=== PATIENT | female | born 1930 | race Caucasian/White ===

== ENCOUNTER 2016-05-16 11:02 | Outpatient (CLI) | payer MEDICARE, BC ==
--- NOTE | 2016-05-16 18:10 | CT ---
CT OF THE CHEST WITHOUT CONTRAST 05/16/[address] of the chest was done without IV contrast for evaluation of an abnormal chest x-ray done r ecently. A nondescript opacity was seen in the left upper lobe that was not present on older film. A xial slices were acquired, then coronal reconstructions were done. There is a broad ground glass-like infiltrative area in the left upper lobe corresponding to the abn ormality on the chest x-ray. It measures 3.7 x 2.5 cm roughly. There are a few areas in it that do a ppear to have air bronchograms. Statistically, this is more apt to be infectious in nature, however, neoplasia is definitely not excluded at this point. I would recommend a instrument repairer consult for c onsideration of further workup. Elsewhere there are no significant pulmonary nodules. There are a few focal areas of pleural thicken ing in the posterior hemithorax bilaterally, none of which are specific in appearance. There are no pleural effusions. The mediastinum showed no mass or adenopathy. Minimal calcification is seen in the left coronary sys tem. Dense calcification is seen at the origin of the right coronary artery. There are no pericardia l effusions. The visible upper abdomen was unremarkable, including the adrenal glands. IMPRESSION: 1. 4.7 x 2.5 cm ground glass infiltrative area in the left upper lobe. Infectious etiology favo red but neoplastic etiology is definitely still a possibility. Pulmonary referral is needed. 2. Coronary arteriosclerosis, particularly involving the origin of the right coronary artery. Code T POS: HOME
== END 2016-05-16 11:03 | disposition home or self-care (01) ==
LOC: BURCT 11:02
PROVIDERS: ATTEND Physician Assistant
DX: R91.1 Solitary pulmonary nodule (principal); I25.10 Atherosclerotic heart disease of native coronary artery without angina pectoris
CPT/HCPCS: 71250

== ENCOUNTER 2016-11-21 09:17 | Inpatient (IN) | payer MEDICARE, BC ==
[2016-11-21 16:34] VITALS: BMI 18.0
[2016-11-21] MEDS ORDERED: traMADol HCl 50 MG TAB PO PRN (17:56)
[2016-11-21] MEDS ORDERED: Dextrose 50% Abboject 50 ML SYRINGE SLOW IVP PRN (18:00)
[2016-11-21] MEDS ORDERED: Dextrose 5% in Water 1,000 ML IV PRN (18:00)
[2016-11-21 18:45] LABS: #Basophils 0.1 thou/uL (0.0-0.2); #Eosinphils 0.1 thou/uL (0.0-0.7); #Lymphocytes 0.6 thou/uL (1.20-3.40); #Monocytes 0.6 thou/uL (0.11-0.59); %Lymphocytes 7.9 % (21.0-51.0); %Monocytes 7.5 % (0.0-10.0); %Neutrophils 81.6 % (42.0-75.0); Hemoglobin 11.2 g/dL (12.0-16.0); Mean Corpuscular HGB CONC 32.6 g/dL (32.0-36.0); Mean Corpuscular Hemoglobin 29.3 pg (27.0-31.0); Mean Platelet Volume 6.4 fL (7.4-10.4); Platelet Count 207 thou/uL (130-400); RBC Distribution Width 13.7 % (11.5-14.5); Red Blood Cell (RBC) Count 3.81 mill/uL (4.20-5.40); White Blood Cell (WBC) Count 7.3 thou/uL (4.8-10.8)
[2016-11-21] MEDS: Atorvastatin Calcium 10 MG TAB PO SCH (20:47)
[2016-11-21] MEDS: Metoprolol Tartrate 25 MG TAB PO SCH (20:47)
[2016-11-21] MEDS: Famotidine 20 MG TAB PO SCH (20:47)
[2016-11-21] MEDS: Apixaban 5 MG TAB PO SCH (20:48)
--- NOTE | 2016-11-22 08:14 | HP ---
CHIEF COMPLAINT: Rehab. HISTORY OF PRESENT ILLNESS: Ms. Strong is an 86-year-old female who was admitted to [facility] on 11/06/2016 to undergo left thoracotomy with left upper lobectomy and mediastinal lymph node dissection by Dr. Aaron Alamo due to a left upper lobe PET-positive mass. This was performed on 11/06/2016 without any post-surgical complications. She had chest tubes that were placed intraoperatively x2 and she was successfully extubated post-procedure. On 11/14/2016, apparently the patient developed what appeared to be slurred speech and some jerking movements of her extremities and Neurology was consulted for orthostatic hypotension which was thought to be due to multiple antihypertensives that were given per consult with neurologist, Dr. Negrito Crowe. In addition, the patient developed some paroxysmal atrial arrhythmias and was evaluated by Cardiology, Dr. Garcia. She was placed on beta -valerie and given IV Cardizem. However, she later had persistent atrial fibrillation with atrial flutter and underwent transesophageal echo on 2016 and subsequent synchronized cardioversion. The patient converted to sinus rhythm with PACs. The patient was on aspirin therapy and was recommended changed to Eliquis at discharge. She also had some atelectasis and eventually required bronchoscopy for her atelectasis to clear her secretions. 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 She was transferred here to the skilled unit for skilled PT and OT with eventual plan to return home with outpatient physical and occupational therapy. PAST MEDICAL HISTORY: 1. Type 2 diabetes. 2. Hypertension. 3. Irritable bowel syndrome. 4. Gastroesophageal reflux disease. 5. Dyslipidemia. 6. Postoperative atrial fibrillation/flutter. 7. Adenocarcinoma of left lung. PAST SURGICAL HISTORY: 1. Tonsillectomy. 2. Cholecystectomy. 3. Appendectomy. 4. Hysterectomy. 5. Carotid arterial stents. 6. Breast biopsy. 7. Cataract surgery bilaterally. 8. Percutaneous coronary intervention in 2003. 9. Bilateral carotid endarterectomy. 10. Hemicolectomy on the right for colon cancer in 2011. 11. Left thoracotomy with left upper lobectomy and mediastinal lymph node dissection 11/06/2016. FAMILY HISTORY: Noncontributory. SOCIAL HISTORY: Negative for tobacco, alcohol, or illicit drug use. She has no history of smoking. No exposure to chemical, dust, asbestoses or tuberculosis. ALLERGIES: AMOXICILLIN, CIPRO, IODINE, SHELLFISH, TETANUS, and ERYTHROMYCIN. CURRENT MEDICATIONS: 1. Digoxin 0.125 mg p.o. q.a.m. 2. Multaq 400 mg p.o. b.i.d. with meals. 3. Lopressor 25 mg p.o. b.i.d. 4. Klor-Con 20 mEq orally every morning with breakfast. 5. Tramadol 100 mg every 6 hours as needed for moderate pain, 4-6. 6. Aspirin 81 mg daily. 7. Linzess 145 mcg orally every morning. 8. Hydralazine 50 mg 3 times a day. 9. Pravastatin 40 mg p.o. at bedtime. 10. Docusate sodium 1 p.o. daily as needed. 11. Calcium carbonate plus vitamin D 250 mg 1 p.o. daily. 12. Januvia 12.5 mg 1 p.o. daily. REVIEW OF SYSTEMS: GENERAL: The patient denies fever. Consistently cold, but denies chills. The patient with some fatigue with distant exertion. HEENT: She denies any vision changes. Denies nasal congestion, postnasal drip , sore throat, ear pain. CARDIOVASCULAR: The patient denies palpitations, chest pain except as with post -surgery, orthopnea, PND. RESPIRATORY: The patient denies shortness of breath except with distant exertion. Positive cough productive of clear sputum. Denies hemoptysis. No wheezing, but she has been getting DuoNeb also regional. GASTROINTESTINAL: Denies constipation, diarrhea, heartburn, nausea, vomiting. However, she does have history of IBS and esophageal reflux disease. GENITOURINARY: The patient denies dysuria, incontinence, gross hematuria. MUSCULOSKELETAL: The patient denies any joint pain or swelling. LYMPHATIC: The patient denies any edema. NEUROLOGIC: Denies numbness, paresthesias, focal weakness. PSYCHIATRIC: Memory loss. PHYSICAL EXAMINATION: VITAL SIGNS: Temperature 97.4, pulse 64, respirations 18, O2 sat 95% on room air, and blood pressure 160/78. GENERAL: Well-developed, thin female, who is alert and oriented, very friendly. HEENT: Normocephalic and atraumatic. Pupils equally round and reactive to light and accommodation. Extraocular muscles are intact. Nares are patent without discharge. Tongue protrudes in midline. NECK: Supple, without lymphadenopathy, thyromegaly, or bruit. No JVD. HEART: Regular rate and rhythm with normal S1, S2. No murmurs, clicks, rubs, or gallops. LUNGS: Clear to auscultation bilaterally with diminished air entry left upper lobe. ABDOMEN: There are 2 separate dressings to the left upper chest wall and to the lower left costal margin that are clean, dry, and intact. Her wounds had been closed with glue and there are no jd or sutures externally. GI: Positive bowel sounds in all four quadrants, soft, nontender, nondistended , no masses, guarding, or rebound tenderness. EXTREMITIES: No cyanosis, clubbing or edema. NEUROLOGICAL: Cranial nerves II-XII grossly intact. No focal deficits. LABORATORY DATA: H\T\H was performed on 11/16/2016, 11.7 and 35.2 respectively , full CBC last performed on 11/07/2016 with white count 10.2 and platelets 202. Chemistry profile last performed on 11/21/2016 with sodium 135, potassium 4.1, chloride 98, bicarb 30, BUN 12, creatinine 1.2, glucose 180. Digoxin level on 11/19/2016 was 1.65. IMAGING: The patient with multiple postoperative x-rays. The last chest x-ray was performed on 11/17/2016 and showed a small left pleural effusion with surgical clips overlying the left hilum. Mild prominence of the interstitial markings in the left hilar region, similar to the prior exam. Right lung was clear. Shift to the upper mediastinal structures are left, similar to prior study. In addition, the patient had a brain CT on 11/13/[address] evidence of acute intracranial process. CT angiography on 11/13/2016 showed no significant evidence of carotid or intracranial disease. ASSESSMENT AND PLAN: 1. Adenocarcinoma of the left lung, status post thoracotomy, left lobectomy and mediastinal lymph node dissection. The patient has been transferred here for skilled PT and OT. We will order incentive spirometry and place the patient on DuoNeb q.6 hours p.r.n. We will perform dressing changes daily and p.r.n. when soiled. The patient will be scheduled to follow up with Dr. Alamo in approximately 2 weeks. 2. Post-surgical atrial fibrillation/atrial flutter. The patient will be continued on her rate control of metoprolol and digoxin. She will be continued on her antiarrhythmic of Multaq. Her baby aspirin will be continued. Dr. Garcia wrote in his note to place her on Eliquis today. However, Dr. Alamo's medication orders did not reflect that. I attempted to clarify this with Cardiology construction materials tester. I talked with Dr. Elinor Blanco who did not see the patient without knowing the patient's full history, recommended that we can cautiously give the medication over the weekend and clarify with Dr. Garcia on Thursday. His progress note did not mention prior history of atrial fibrillation. However , in one of the progress notes dictated, there was a mention of some recurrent atrial arrhythmias that sounded like they were past tense. I have only placed her on a 2.5 mg b.i.d. due to her age greater than 82 and less than 60 kilos. We will get a H\T\H now and repeat that on Thursday as well as a digoxin level. We will monitor her renal function closely. 3. Type 2 diabetes. We will order Accu-Cheks q.a.c. and at bedtime with a Humalog correction algorithm mild and bedtime per protocol. Diabetic diet. We will continue her Januvia. 4. Hypertension. The patient will be continued on her current regimen. 5. Hyperlipidemia. The patient will be continued on her statin. 6. Irritable bowel syndrome. The patient will be continued on her Linzess. 7. Prophylaxis. The patient will be on Eliquis and we will give with Pepcid for GI ulcer prophylaxis. MTDD
[2016-11-22] MEDS: Alogliptin Benzoate 25 MG TABLET PO SCH (08:34)
[2016-11-22] MEDS: Apixaban 5 MG TAB PO SCH ×2 (08:35→20:23)
[2016-11-22] MEDS: Digoxin 0.125 MG TAB PO SCH (08:35)
[2016-11-22] MEDS: Aspirin 81 mg Enteric Coated Tablet PO SCH (08:35)
[2016-11-22] MEDS: Metoprolol Tartrate 25 MG TAB PO SCH ×2 (08:35→20:23)
[2016-11-22] MEDS: Potassium Chloride 20 MEQ TAB PO SCH (08:35)
[2016-11-22] MEDS: Famotidine 20 MG TAB PO SCH ×2 (08:36→20:24)
[2016-11-22] MEDS: Calcium Carbonate + Vit D 500 MG TAB PO SCH (08:36)
[2016-11-22] MEDS: HumaLOG 300 UNITS/3 ML VIAL SC PRN ×3 (08:37→20:26)
[2016-11-22] MEDS: Dronedarone HCl 400 MG TAB PO SCH ×3 (08:37→20:23)
[2016-11-22] MEDS ORDERED: Non-Formulary Item 1 EACH (Linaclotide [Linzess] 145 MCG) PO SCH (09:00)
[2016-11-22] MEDS: Atorvastatin Calcium 10 MG TAB PO SCH (20:23)
[2016-11-23] MEDS: Digoxin 0.125 MG TAB PO SCH (08:28)
[2016-11-23] MEDS: Metoprolol Tartrate 25 MG TAB PO SCH ×2 (08:28→21:08)
[2016-11-23] MEDS: Docusate (Surfak) 240 MG CAP PO PRN (08:28)
[2016-11-23] MEDS: Aspirin 81 mg Enteric Coated Tablet PO SCH (08:29)
[2016-11-23] MEDS: Apixaban 5 MG TAB PO SCH ×2 (08:29→20:45)
[2016-11-23] MEDS: Famotidine 20 MG TAB PO SCH ×2 (08:29→20:46)
[2016-11-23] MEDS: Alogliptin Benzoate 25 MG TABLET PO SCH (08:29)
[2016-11-23] MEDS: Potassium Chloride 20 MEQ TAB PO SCH (08:31)
[2016-11-23] MEDS: Calcium Carbonate + Vit D 500 MG TAB PO SCH (08:31)
[2016-11-23] MEDS: HumaLOG 300 UNITS/3 ML VIAL SC PRN ×4 (08:32→20:44)
[2016-11-23] MEDS: Dronedarone HCl 400 MG TAB PO SCH ×2 (08:32→16:40)
[2016-11-23] MEDS ORDERED: Bisacodyl 10 MG SUPP PR PRN (16:24)
[2016-11-23] MEDS ORDERED: Milk Of Magnesia 30 ML UDCUP PO PRN (16:24)
[2016-11-23] MEDS: Atorvastatin Calcium 10 MG TAB PO SCH (20:46)
[2016-11-24 05:21] LABS: #Eosinphils 0.1 thou/uL (0.0-0.7); #Lymphocytes 0.6 thou/uL (1.20-3.40); #Monocytes 0.6 thou/uL (0.11-0.59); #Neutrophils 4.2 thou/uL (1.40-6.50); %Basophils 0.8 % (0.0-1.0); %Eosinophils 2.4 % (0.0-10.0); %Lymphocytes 10.8 % (21.0-51.0); Hemoglobin 9.9 g/dL (12.0-16.0); Mean Corpuscular HGB CONC 34.1 g/dL (32.0-36.0); Mean Corpuscular Hemoglobin 30.1 pg (27.0-31.0); Mean Corpuscular Volume 88.2 fl (81.0-99.0); Mean Platelet Volume 6.6 fL (7.4-10.4); Platelet Count 167 thou/uL (130-400); Red Blood Cell (RBC) Count 3.28 mill/uL (4.20-5.40); White Blood Cell (WBC) Count 5.5 thou/uL (4.8-10.8)
[2016-11-24 05:42] LABS: Anion Gap 12 mmol/L (10-20); BUN (Urea Nitrogen) 24 mg/dL (9.8-20.1); Calc. Creatinine Clearance 37 mL/min (70-130); Calcium 7.9 mg/dL (7.8-10.44); Carbon Dioxide 25 mmol/L (23-31); Chloride 105 mmol/L (98-107); Digoxin 1.19 ng/mL (0.8-2.0); Estimated GFR-MDRD 65; Glucose 188 mg/dL (83-110); Potassium 4.6 mmol/L (3.5-5.1); Sodium 137 mmol/L (136-145)
[2016-11-24] MEDS: Dronedarone HCl 400 MG TAB PO SCH ×2 (08:42→16:55)
[2016-11-24] MEDS: Potassium Chloride 20 MEQ TAB PO SCH (08:43)
[2016-11-24] MEDS: Apixaban 5 MG TAB PO SCH ×2 (08:43→20:42)
[2016-11-24] MEDS: Alogliptin Benzoate 25 MG TABLET PO SCH (08:43)
[2016-11-24] MEDS: Docusate (Surfak) 240 MG CAP PO PRN (08:43)
[2016-11-24] MEDS: Famotidine 20 MG TAB PO SCH ×2 (08:46→20:44)
[2016-11-24] MEDS: Digoxin 0.125 MG TAB PO SCH (08:46)
[2016-11-24] MEDS: Calcium Carbonate + Vit D 500 MG TAB PO SCH (08:46)
[2016-11-24] MEDS: Metoprolol Tartrate 25 MG TAB PO SCH ×2 (08:47→20:41)
[2016-11-24] MEDS: Aspirin 81 mg Enteric Coated Tablet PO SCH (08:47)
[2016-11-24] MEDS: HumaLOG 300 UNITS/3 ML VIAL SC PRN ×3 (08:49→20:40)
[2016-11-24] MEDS ORDERED: Triamterene/Hydrochlorothiazide 37.5 mg/25 mg Tablet PO SCH (10:30)
[2016-11-24] MEDS: Atorvastatin Calcium 10 MG TAB PO SCH (20:42)
[2016-11-25 06:08] VITALS: TEMP 98.8
[2016-11-25] MEDS: Dronedarone HCl 400 MG TAB PO SCH (08:19)
[2016-11-25] MEDS: Famotidine 20 MG TAB PO SCH (08:20)
[2016-11-25] MEDS: Digoxin 0.125 MG TAB PO SCH (08:20)
[2016-11-25] MEDS: Alogliptin Benzoate 25 MG TABLET PO SCH (08:20)
[2016-11-25] MEDS: Aspirin 81 mg Enteric Coated Tablet PO SCH (08:20)
[2016-11-25] MEDS: Apixaban 5 MG TAB PO SCH (08:21)
[2016-11-25] MEDS: Calcium Carbonate + Vit D 500 MG TAB PO SCH (08:22)
[2016-11-25] MEDS: Metoprolol Tartrate 25 MG TAB PO SCH (08:23)
[2016-11-25 08:28] VITALS: BP 138/50
[2016-11-25] MEDS: HumaLOG 300 UNITS/3 ML VIAL SC PRN (08:28)
[2016-11-25] MEDS: Potassium Chloride 20 MEQ TAB PO SCH (08:28)
== END 2016-11-25 11:30 | disposition home or self-care (01) | DRG 948 ==
LOC: BURMED 16:00
PROVIDERS: ADMIT Family Medicine; ATTEND Family Medicine
DX: R53.81 Other malaise (principal); C34.92 Malignant neoplasm of unspecified part of left bronchus or lung; I48.91 Unspecified atrial fibrillation; I10 Essential (primary) hypertension; I97.89 Other postprocedural complications and disorders of the circulatory system, not elsewhere classified; Y83.8 Other surgical procedures as the cause of abnormal reaction of the patient, or of later complication, without mention of misadventure at the time of the procedure; Y81.3 Surgical instruments, materials and general- and plastic-surgery devices (including sutures) associated with adverse incidents; E11.9 Type 2 diabetes mellitus without complications; E78.5 Hyperlipidemia, unspecified; K58.9 Irritable bowel syndrome, unspecified; K21.9 Gastro-esophageal reflux disease without esophagitis
CPT/HCPCS: 36415; 36416; 80048; 80162; 85025; G8978-GP-CJ; G8979-GP-CI; G8987-GO-CI; G8988-GO-CI; G8989-GO-CI; J7620

== ENCOUNTER 2017-04-24 15:07 | Emergency (ER) | payer MEDICARE, BC ==
[2017-04-24 16:03] LABS: ALT (SGPT) 12 U/L (8-55); AST (SGOT) 14 U/L (5-34); Albumin 3.6 g/dL (3.4-4.8); Alkaline Phosphatase 74 U/L (40-150); Anion Gap 14 mmol/L (10-20); BUN (Urea Nitrogen) 19 mg/dL (9.8-20.1); Bilirubin, Total 0.5 mg/dL (0.2-1.2); Calc. Creatinine Clearance 0 mL/min (70-130); Calcium 9.2 mg/dL (7.8-10.44); Carbon Dioxide 28 mmol/L (23-31); Chloride 98 mmol/L (98-107); Estimated GFR-MDRD 64; Globulin 3.3 g/dL (2.4-3.5); Glucose 146 mg/dL (83-110); Potassium 3.8 mmol/L (3.5-5.1); Protein, Total 6.9 g/dL (6.0-8.3); Sodium 136 mmol/L (136-145)
[2017-04-24 16:04] LABS: CKMB 0.8 ng/mL (0-6.6); Troponin I 0.019 ng/mL (< 0.028)
[2017-04-24 16:15] LABS: #Basophils 0.1 thou/uL (0.0-0.2); #Lymphocytes 0.6 thou/uL (1.20-3.40); #Monocytes 0.6 thou/uL (0.11-0.59); #Neutrophils 4.6 thou/uL (1.40-6.50); %Basophils 0.9 % (0.0-1.0); %Lymphocytes 9.6 % (21.0-51.0); %Monocytes 10.3 % (0.0-10.0); %Neutrophils 79.1 % (42.0-75.0); Acanthocytes SLIGHT = 1-5 cells (100X) (None Seen); Band 15 % (5-11); Hemoglobin 13.4 g/dL (12.0-16.0); Lymphocytes 9 % (21-51); MDiff Complete? YES; Mean Corpuscular Hemoglobin 29.2 pg (27.0-31.0); Mean Corpuscular Volume 83.4 fl (81.0-99.0); Mean Platelet Volume 7.2 fL (7.4-10.4); Monocytes 6 % (0-10); Neutrophil 70 % (42-75); Platelet Count 222 thou/uL (130-400); Red Blood Cell (RBC) Count 4.59 mill/uL (4.20-5.40); Rouleaux Formation SLIGHT = 1-5 cells (100X) (None Seen); White Blood Cell (WBC) Count 5.8 thou/uL (4.8-10.8)
--- NOTE | 2017-04-24 16:47 | RAD ---
PORTABLE CHEST 04/24/17 An AP portable film at 1511 is compared with a 03/11/17 study. The left pleural effusion is again noted. It is similar in amount to before. It may have increased sl ightly, but the changes are slight. The right lung is clear. The heart size is unchanged. There is no congestion of the vessels. IMPRESSION: Left pleural effusion similar to February or perhaps minimally increased. POS: HOME
[2017-04-24] MEDS ORDERED: cloNIDine 0.1 MG TAB ONE (17:04)
[2017-04-24] MEDS ORDERED: Benzonatate 100 MG CAP ONE ×2 (17:05)
[2017-04-24] MEDS ORDERED: methylPREDNISolone Sod Succ/PF 125 MG/2 ML VIAL ONE (17:13)
--- NOTE | 2017-04-24 17:23 | CT ---
CT OF THE CHEST WITHOUT CONTRAST: DATE: 04/24/17. FINDINGS: Contrast was deferred due to a history of iodine allergy according to the patient. Axial slices were acquired, then coronal and sagittal reconstructions were done. There is a sizable left pleural effusion that enveloped the lung. A smaller but very definite right pleural effusion was present. There are some very minor infiltrative changes in the right lower lobe . There are more substantial left lower lobe infiltrative changes that could be pneumonia or atelect asis, or both. By history, the patient has had a prior left upper lobectomy. There is a spiculated nodular area in the left lung apex, but it appears contiguous with the pleural surface. I cannot tell on this scan i f this was actual tumor or if this is merely residual scarring from the patient's surgery. A PET sca n looking at this region would probably be much more sensitive at differentiating between the two. O therwise, no pulmonary nodules were seen. The mediastinum showed no mass or significant adenopathy. The heart is mildly enlarged. There are some coronary artery calcifications in the left circulation , though they are not excessive. A few more are actually seen on the right. IMPRESSION: 1. Bilateral pleural effusions, much greater on the left than the right. Looking at prior chest x-r ays, the effusion on the right has increased slightly over time, but no dramatically. 2. Minimal right lower lobe infiltrate. More substantial left lower lobe infiltrate which may be pn eumonia, atelectasis, or both. 3. Nodular area in the left lung apex. I cannot tell if this is postoperative scarring from her lob ectomy versus recurrent tumor. PET scan recommended. Findings discussed with Dr. Vega at 1645 on 04/24/17. CODE CR POS: HOME
== END 2017-04-24 18:26 | disposition home or self-care (01) ==
LOC: BURERS 15:07
DX: J18.9 Pneumonia, unspecified organism (principal); E11.9 Type 2 diabetes mellitus without complications; E78.5 Hyperlipidemia, unspecified; I10 Essential (primary) hypertension; Z79.899 Other long term (current) drug therapy; Z79.82 Long term (current) use of aspirin
CPT/HCPCS: 71045; 71250; 80053; 82553; 83880; 84484; 85025; 87040; 94640; 96374; J2930; J7620

== ENCOUNTER 2017-04-25 10:18 | Inpatient (IN) | payer MEDICARE, BC ==
[2017-04-25 11:12] LABS: Hemoglobin 12.1 g/dL (12.0-16.0); Manual Diff?? YES; Mean Corpuscular HGB CONC 34.3 g/dL (32.0-36.0); Mean Corpuscular Hemoglobin 28.2 pg (27.0-31.0); Mean Corpuscular Volume 82.2 fL (81.0-99.0); Mean Platelet Volume 7.6 fL (7.4-10.4); Platelet Count 187 thou/uL (130-400); RBC Distribution Width 14.7 % (11.5-14.5); Red Blood Cell (RBC) Count 4.31 mill/uL (4.20-5.40); White Blood Cell (WBC) Count 6.8 thou/uL (4.8-10.8)
[2017-04-25 11:13] LABS: Digoxin 0.27 ng/mL (0.8-2.0); MDiff Complete? YES
[2017-04-25 11:15] LABS: ALT (SGPT) 12 U/L (8-55); AST (SGOT) 11 U/L (5-34); Albumin 3.4 g/dL (3.4-4.8); Alkaline Phosphatase 70 U/L (40-150); Anion Gap 15 mmol/L (10-20); BUN (Urea Nitrogen) 30 mg/dL (9.8-20.1); Bilirubin, Total 0.5 mg/dL (0.2-1.2); Calc. Creatinine Clearance 0 mL/min (70-130); Calcium 9.1 mg/dL (7.8-10.44); Carbon Dioxide 26 mmol/L (23-31); Chloride 97 mmol/L (98-107); Estimated GFR-MDRD 44; Globulin 3.1 g/dL (2.4-3.5); Glucose 359 mg/dL (83-110); Potassium 3.7 mmol/L (3.5-5.1); Protein, Total 6.5 g/dL (6.0-8.3); Sodium 134 mmol/L (136-145)
[2017-04-25] MEDS ORDERED: cefTRIAXone\\ROCEPHIN 2 GM VIAL ONE (11:15)
[2017-04-25 11:16] LABS: CKMB 1.6 ng/mL (0-6.6); Troponin I 0.015 ng/mL (< 0.028)
[2017-04-25] MEDS ORDERED: Sodium Chloride 0.9% 100 ML ONE (11:19)
[2017-04-25 11:20] LABS: Band 6 % (5-11); Blast 0 % (0-0); Eosinophils 0 % (0-10); Lymphocytes 1 % (21-51); Metamyelocyte 0 % (0-0); Monocytes 3 % (0-10); Myelocyte 0 % (0-0); Neutrophil 81 % (42-75); Nucleated RBC 0 % (0); Promyelocytes 0 % (0-0)
[2017-04-25 11:22] LABS: Acanthocytes SLIGHT = 1-5 cells (100X) (None Seen); Rouleaux Formation SLIGHT = 1-5 cells (100X) (None Seen)
[2017-04-25 11:48] LABS: Bilirubin Small (Negative); Blood, Urine Negative (Negative); Clarity Slightly Cloudy (Clear); Glucose, Urine (Dipstick) 100 mg/dL (Negative); Leukocyte Negative (Negative); Nitrite Negative (Negative); Protein, Urine (Dipstick) > or equal to 300 mg/dL (Neg-Trace); Urobilinogen 0.2 mg/dL (0.2-1.0)
[2017-04-25 11:55] LABS: Bacteria/HPF Rare-Few HPF (None Seen); Crystals/HPF None Seen HPF (Negative); Oval Fat Bodies/HPF None Seen HPF (None Seen); RBC/HPF 0-3 HPF (0-3); Renal Epithelial None Seen HPF (0-3); Sperm/HPF None Seen HPF (None Seen); Squamous Epithelial 0-3 HPF (0-3); Transitional Epithelial NONE SEEN HPF (0-3); Trichomonas/HPF None Seen HPF (None Seen); WBC/HPF 0-3 HPF (0-3); Yeast-All Forms None Seen HPF (None Seen)
[2017-04-25 11:56] LABS: Hyaline Casts/LPF 0-3 HYALINE CAST LPF (0-3 Hyaline); Other Casts/LPF 0-3 FINELY GRAN LPF (0-3 Hyaline)
[2017-04-25] MEDS ORDERED: Furosemide 40 MG/4 ML VIAL ONE (12:11)
[2017-04-25] MEDS ORDERED: Ondansetron HCl/PF 4 MG/2 ML Vial IVP PRN (13:05)
[2017-04-25] MEDS ORDERED: Acetaminophen 325 MG TAB PO PRN (13:05)
[2017-04-25] MEDS ORDERED: Ondansetron ODT 4 MG TAB PO PRN (13:05)
[2017-04-25 13:06] VITALS: BMI 16.8
[2017-04-25] MEDS ORDERED: Albuterol Sulfate 2.5 mg/3 ml Neb NEB PRN (13:06)
[2017-04-25] MEDS ORDERED: cloNIDine 0.1 MG TAB PO SCH (13:30)
[2017-04-25] MEDS ORDERED: Dextrose 5% in Water 1,000 ML IV PRN (16:54)
[2017-04-25] MEDS ORDERED: Dextrose 50% Abboject 50 ML SYRINGE SLOW IVP PRN (16:54)
[2017-04-25] MEDS ORDERED: HumaLOG 300 UNITS/3 ML VIAL SC PRN (16:54)
[2017-04-25] MEDS: HumaLOG 300 UNITS/3 ML VIAL SC PRN (18:23)
--- NOTE | 2017-04-25 20:16 | HP ---
CHIEF COMPLAINT: Hyperglycemia. HISTORY OF PRESENT ILLNESS: Ms. Strong is an 87-year-old female who is followed by Dr. Fransico Aaron in the outpatient setting who presented to the [facility] ER yesterday with complaints of in creasing cough and congestion. The patient had a cough that had been persistent for approximately 2 weeks. She presented to her PCP who prescribed doxycycline and Tessalon Perles. No imaging was perf ormed at that time. The patient reports worsening of condition with wheezing and having to sit up in the chair due to shortness of breath. The evaluation yesterday consisted of a chest x-ray that show ed left pleural effusion that was similar to 02/2017 study, perhaps minimally increased. In addition , a chest CT was performed that showed bilateral pleural effusions, much greater on the left than the right. Looking at prior chest x-rays, the effusion on the right is increased slightly over time, bu t not dramatically. Minimal right lower lobe infiltrate. More substantial left lower lobe infiltrat e which may be pneumonia, atelectasis, or both. Nodular area in the left lung apex. Cannot tell if this is postoperative scarring from lobectomy versus recurrent tumor. PET scan recommended. Blood c ultures were performed x2 which have showed no growth to date. Her white count was not elevated and she denied having any fever. The patient was given DuoNeb, 125 mg IV Solu-Medrol, clonidine 0.1 mg f or elevated blood pressure, Tessalon 200 mg p.o. x1 and another DuoNeb prior to discharge. She was d iagnosed with pneumonia and sent home with a prescription for a nebulizer machine and DuoNeb with ret urn instructions to return for worsening. The patient then presented again today with complaints of hyperglycemia. Her glucose was greater than 400 at home and upon arrival to the emergency room, it w as 384. It was recommended that I evaluate the patient for inpatient admission and treatment of pneu monia and hyperglycemia. At present, the patient denies any dyspnea. She reports her sputum is mini kj productive of opaque sputum. Again, she denies fever or chills. She is not on home oxygen the rapy. PAST MEDICAL HISTORY: 1. Type 2 diabetes. 2. Hypertension. 3. Irritable bowel syndrome. 4. Gastroesophageal reflux disease. 5. Dyslipidemia. 6. Postoperative atrial fibrillation/flutter following left thoracotomy with left upper lobectomy. 7. Adenocarcinoma of the left lung, status post left thoracotomy and left upper lobectomy and medias tinal lymph node dissection with Dr. Aaron Alamo in 10/2016. PAST SURGICAL HISTORY: 1. Left thoracotomy with left upper lobectomy and mediastinal lymph node dissection 11/06/2016. 2. Synchronized cardioversion on 11/20/2016, for postoperative atrial fibrillation/atrial flutter. 3. Tonsillectomy. 4. Cholecystectomy. 5. Appendectomy. 6. Hysterectomy. 7. Carotid arterial stents. 8. Breast biopsy. 9. Cataract surgery bilaterally. 10. Percutaneous coronary intervention in 2003. 11. Bilateral carotid endarterectomy. 12. Hemicolectomy on the right for colon cancer in 2011. FAMILY HISTORY: Noncontributory. SOCIAL HISTORY: Negative for tobacco, alcohol, or illicit drug use. No exposure to chemical, dust, asbestosis, or tuberculosis. ALLERGIES: AMOXICILLIN, CIPRO, IODINE, SHELLFISH, TETANUS TOXOID, ERYTHROMYCIN. CURRENT MEDICATIONS: 1. Glipizide XL 5 mg p.o. q.a.m. 2. Doxycycline 100 mg p.o. q.12 hours. 3. Linzess 145 mcg p.o. q.a.m. p.r.n. 4. Benzonatate 200 mg p.o. t.i.d. p.r.n. 5. Gabapentin 100 mg p.o. at bedtime. 6. Lopressor 25 mg p.o. q.a.m. 7. Lanoxin 0.125 mg p.o. daily. 8. Januvia 100 mg p.o. daily. 9. Hydralazine 50 mg p.o. t.i.d. 10. Aspirin 81 mg p.o. daily. REVIEW OF SYSTEMS: General: Patient denies fever, chills, weakness, fatigue. HEENT: Patient denie s ear pain, sore throat. She has a chronic rhinorrhea that is clear and not new. Denies changes in vision. Cardiovascular: Denies chest pain, palpitations, orthopnea, PND. Respiratory: Positive cough productive of opaque sputum as per HPI. Denies hemoptysis. Positive wh eezing. Gastrointestinal: Patient with chronic constipation. Denies diarrhea, melena, hematochezia . Denies nausea or vomiting. Denies abdominal pain. Genitourinary: Denies dysuria, frequency, urg ency, gross hematuria. Lymphatic: The patient has had a small amount of ankle edema, otherwise no s welling noted in recent weeks. Hematologic: Denies easy bleeding or bruising. PHYSICAL EXAMINATION: VITAL SIGNS: Temperature 97.6, heart rate 72, respirations 18, O2 sat 95% on room air, blood pressur e 199/82 and a repeat after 0.1 mg of clonidine is 165/74. GENERAL: Slightly anxious appearing, thin female who is alert and oriented x3. Normal aff ect. HEENT: Normocephalic, atraumatic. Pupils are equal, round, and reactive to light and accommodation. Extraocular muscles are intact. Nares are patent without discharge. Tongue protrudes in the midli ne. NECK: Supple, without lymphadenopathy, thyromegaly, JVD or bruit. HEART: Regular rate and rhythm with normal S1, S2. No murmurs, clicks, rubs, or gallops. LUNGS: Diminished air entry left upper lobe with rare rhonchi in all other wild. No wheezing. No respiratory distress/increased work of breathing. ABDOMEN: Positive bowel sounds in all four quadrants. Soft, nontender, nondistended, no masses, gua rding, or rebound tenderness. EXTREMITIES: No cyanosis or clubbing. Trace ankle edema bilaterally. NEUROLOGIC: Cranial nerves II-XII grossly intact. No focal deficits. LABORATORY DATA: CBC: White count 6.8, hemoglobin 12.1, hematocrit 35.4, platelet 187 with 81% poly s, 6 bands, 1 lymphocyte. Sodium 134, potassium 3.7, chloride 97, bicarb 26, BUN 30, creatinine 1.17 , glucose 359, calcium 9.1, AST 11, ALT 12, alkaline phosphatase 70, CK-MB 1.6, troponin I 0.015, B-t ype natriuretic peptide 558, serum total protein 6.5, albumin 3.4. Urinalysis significant for greate r than or equal to 300 protein, 100 glucose, small bilirubin, 0-3 casts, digoxin 0.27, which is low, blood cultures x2 negative to date drawn on 04/24/2017. Urine culture pending. IMAGING: No new imaging. Please see HPI for images performed on 04/24/2017 previous CD evaluation. ASSESSMENT AND PLAN: 1. Community-acquired pneumonia, bibasilar, failed outpatient treatment. The patient has multiple d rug allergies. We will continue the patient on doxycycline 100 mg p.o. q.12 hours. The patient was g iven a dose of Rocephin in the emergency room today and we will continue this. We will follow up tracy st x-ray Thursday04/27/2017. Patient will be given DuoNeb scheduled q.i.d. with albuterol neb s in between as needed. The patient will be given O2 as needed to keep O2 sats greater than 94%. Bl ood cultures will be followed from her ER evaluation on 04/24/2017. 2. Bilateral pleural effusions. The patient was administered 20 mg of IV Lasix in the emergency dep artment and her B-type natriuretic peptide was slightly elevated. She did have a transesophageal ech ocardiogram in 11/2006 that showed a normal left ventricular ejection fraction and she also had an ec hocardiogram in October that showed a normal left ventricular ejection fraction at 60-65%, trace mi tral regurgitation, moderately dilated left atrium, moderately elevated pulmonary artery pressure. A t the current time, she appears to be minimally fluid overloaded. We will repeat a B-type natriureti c peptide in the a.m. along with a CBC and basic metabolic profile. 3. History of adenocarcinoma of the lung. The area in question will need to be investigated further with outpatient PET scan to be coordinated following her hospitalization, recommended by primary car e physician. 4. Type 2 diabetes. The patient is not insulin-dependent. Her hyperglycemia today is secondary to the IV Solu-Medrol she received in the Emergency Department yesterday. Placed her on her home medica tion regimen with Accu-Cheks q.a.c. and at bedtime with moderate Humalog premeal and bedtime correcti on algorithm. We will order a consistent carbohydrate diet. 5. Peripheral vascular disease. The patient will be continued on her aspirin. 6. Hypertension. The patient notably hypertensive and this is improved with 0.1 clonidine administe red. We will continue this b.i.d. p.r.n. for a systolic blood pressure greater than or equal to 180 and a diastolic blood pressure greater than or equal to 100. We will continue the patient's metoprol ol and hydralazine. 7. Irritable bowel syndrome. The patient's Linzess will be continued p.r.n. 8. Gastroesophageal reflux disease. The patient is not on outpatient therapy for this. We will claudia ce patient on Pepcid, both for this problem and for stress ulcer prophylaxis. 9. Dyslipidemia. The patient is not currently on statin therapy at this time. We will give the pat ient low cholesterol diet. 10. Prophylaxis. Again, we will give Pepcid. We will place sequential compression devices on the p atient. 11. Code status. Upon discussion with the patient, she has an existing out of hospital DNR and zaira res to continue to be DO NOT RESUSCITATE status while hospitalized.
[2017-04-25] MEDS: Gabapentin 100 MG CAP PO SCH (20:22)
[2017-04-25] MEDS: Famotidine 20 MG TAB PO SCH (20:23)
[2017-04-25] MEDS: hydrALAZINE 25 MG TAB PO SCH (20:23)
[2017-04-25] MEDS: Doxycycline Hyclate 100 MG TAB PO SCH (20:28)
[2017-04-25] MEDS ORDERED: Benzonatate 100 MG CAP PO PRN (21:00)
[2017-04-26] MEDS: cloNIDine 0.1 MG TAB PO PRN (04:56)
[2017-04-26 05:56] LABS: %Neutrophils 82.1 % (42.0-75.0); Hemoglobin 11.4 g/dL (12.0-16.0); Mean Corpuscular HGB CONC 35.1 g/dL (32.0-36.0); Mean Corpuscular Hemoglobin 28.9 pg (27.0-31.0); Mean Corpuscular Volume 82.3 fL (81.0-99.0); Mean Platelet Volume 7.1 fL (7.4-10.4); Platelet Count 181 thou/uL (130-400); RBC Distribution Width 14.6 % (11.5-14.5); Red Blood Cell (RBC) Count 3.96 mill/uL (4.20-5.40); White Blood Cell (WBC) Count 7.1 thou/uL (4.8-10.8)
[2017-04-26 05:57] LABS: #Basophils 0.1 thou/uL (0.0-0.2); #Lymphocytes 0.6 thou/uL (1.20-3.40); #Monocytes 0.6 thou/uL (0.11-0.59); #Neutrophils 5.8 thou/uL (1.40-6.50); %Basophils 0.9 % (0.0-1.0); %Eosinophils 0.2 % (0.0-10.0); %Lymphocytes 8.6 % (21.0-51.0); %Monocytes 8.2 % (0.0-10.0)
[2017-04-26 06:02] LABS: Anion Gap 13 mmol/L (10-20); BUN (Urea Nitrogen) 29 mg/dL (9.8-20.1); Calc. Creatinine Clearance 33 mL/min (70-130); Calcium 8.5 mg/dL (7.8-10.44); Carbon Dioxide 25 mmol/L (23-31); Chloride 104 mmol/L (98-107); Estimated GFR-MDRD 62; Glucose 124 mg/dL (83-110); Potassium 3.7 mmol/L (3.5-5.1); Sodium 138 mmol/L (136-145)
[2017-04-26] MEDS ORDERED: Labetalol HCl 100 MG/20 ML VIAL ONE ×3 (06:14→21:39)
[2017-04-26] MEDS: Labetalol HCl 100 MG/20 ML VIAL SLOW IVP PRN ×4 (06:21→21:44)
[2017-04-26] MEDS ORDERED: Metoprolol Tartrate 25 MG TAB PO SCH (09:00)
[2017-04-26] MEDS ORDERED: Alogliptin 6.25 MG TAB PO SCH (09:00)
[2017-04-26] MEDS ORDERED: Linaclotide [Linzess] 145 MCG) PO PRN (09:00)
[2017-04-26] MEDS: hydrALAZINE 25 MG TAB PO SCH ×3 (09:06→20:47)
[2017-04-26] MEDS: Aspirin 81 mg Enteric Coated Tablet PO SCH (09:06)
[2017-04-26] MEDS: Doxycycline Hyclate 100 MG TAB PO SCH ×2 (09:08→20:48)
[2017-04-26] MEDS: Floranex Packet PO SCH (09:08)
[2017-04-26] MEDS ORDERED: cefTRIAXone\\ROCEPHIN 1 GM VIAL ONE (10:32)
[2017-04-26] MEDS ORDERED: Sterile Water 10 ML ONE (10:38)
[2017-04-26] MEDS: JANUVIA 100 MG PO SCH (10:40)
[2017-04-26] MEDS: cefTRIAXone\\ROCEPHIN 1 GM in Sterile Water 10 ML IVPB SCH (10:41)
[2017-04-26] MEDS ORDERED: Sodium Chloride 0.9% 10 ML ONE (10:43)
[2017-04-26] MEDS ORDERED: cefTRIAXone\\ROCEPHIN 1 GM in Sodium Chloride 0.9% 100 ML IVPB SCH (11:00)
[2017-04-26] MEDS: HumaLOG 300 UNITS/3 ML VIAL SC PRN (13:22)
[2017-04-26] MEDS: guaiFENesin ER 600 MG TAB PO SCH (20:46)
[2017-04-26] MEDS: Gabapentin 100 MG CAP PO SCH (20:48)
[2017-04-26] MEDS: Famotidine 20 MG TAB PO SCH (20:48)
[2017-04-26] MEDS: Metoprolol Tartrate 25 MG TAB PO SCH (20:49)
[2017-04-27 05:23] LABS: #Basophils 0.1 thou/uL (0.0-0.2); #Eosinphils 0.1 thou/uL (0.0-0.7); #Lymphocytes 0.8 thou/uL (1.20-3.40); #Monocytes 0.5 thou/uL (0.11-0.59); #Neutrophils 5.1 thou/uL (1.40-6.50); %Basophils 1.1 % (0.0-1.0); %Eosinophils 1.1 % (0.0-10.0); %Lymphocytes 11.7 % (21.0-51.0); %Monocytes 7.8 % (0.0-10.0); %Neutrophils 78.3 % (42.0-75.0); Hemoglobin 11.8 g/dL (12.0-16.0); Mean Corpuscular HGB CONC 34.8 g/dL (32.0-36.0); Mean Corpuscular Hemoglobin 28.5 pg (27.0-31.0); Mean Platelet Volume 7.1 fL (7.4-10.4); Platelet Count 191 thou/uL (130-400); RBC Distribution Width 14.7 % (11.5-14.5); Red Blood Cell (RBC) Count 4.15 mill/uL (4.20-5.40); White Blood Cell (WBC) Count 6.5 thou/uL (4.8-10.8)
[2017-04-27 05:33] LABS: Anion Gap 17 mmol/L (10-20); Calc. Creatinine Clearance 34 mL/min (70-130); Calcium 8.9 mg/dL (7.8-10.44); Carbon Dioxide 22 mmol/L (23-31); Chloride 104 mmol/L (98-107); Estimated GFR-MDRD 64; Glucose 122 mg/dL (83-110); Potassium 3.8 mmol/L (3.5-5.1); Sodium 139 mmol/L (136-145)
[2017-04-27 05:38] LABS: BUN (Urea Nitrogen) 24 mg/dL (9.8-20.1)
[2017-04-27] MEDS ORDERED: Milk Of Magnesia 30 ML UDCUP PO PRN (07:34)
--- NOTE | 2017-04-27 07:59 | RAD ---
CHEST 2 VIEWS: HISTORY: Pneumonia. Pleural fluid. COMPARISON: 04/24/17. FINDINGS: Cardiac silhouette remains obscured by left pleural fluid and basilar infiltrate, similar in appearan ce to the previous CT. A small amount of right pleural fluid remains. Loculated fluid at the left a pex accounts for the triangular opacity. Loculated fluid at the left apex accounts for the triangula r opacity. Lungs are otherwise hyperinflated. Mediastinum is midline. IMPRESSION: 1. Bilateral pleural fluid, left greater than right, and left basilar infiltrate are stable compared to recent CT. 2. Chronic obstructive pulmonary disease. POS: [facility]
[2017-04-27] MEDS: Metoprolol Tartrate 25 MG TAB PO SCH ×2 (08:37→22:03)
[2017-04-27] MEDS: Aspirin 81 mg Enteric Coated Tablet PO SCH (08:37)
[2017-04-27] MEDS: Doxycycline Hyclate 100 MG TAB PO SCH ×2 (08:37→22:02)
[2017-04-27] MEDS: hydrALAZINE 25 MG TAB PO SCH ×3 (08:38→22:04)
[2017-04-27] MEDS: JANUVIA 100 MG PO SCH (08:42)
[2017-04-27] MEDS: guaiFENesin ER 600 MG TAB PO SCH ×2 (08:42→22:01)
[2017-04-27] MEDS: Floranex Packet PO SCH (08:42)
[2017-04-27] MEDS ORDERED: Digoxin 0.125 MG TAB PO SCH (09:00)
[2017-04-27] MEDS ORDERED: Furosemide 20 MG/2 ML VIAL SLOW IVP SCH (09:00)
[2017-04-27] MEDS: cefTRIAXone\\ROCEPHIN 1 GM in Sterile Water 10 ML IVPB SCH (11:16)
[2017-04-27] MEDS: HumaLOG 300 UNITS/3 ML VIAL SC PRN (13:11)
[2017-04-27] MEDS: Famotidine 20 MG TAB PO SCH (22:01)
[2017-04-27] MEDS: Gabapentin 100 MG CAP PO SCH (22:02)
[2017-04-27] MEDS: cloNIDine 0.1 MG TAB PO PRN (22:03)
[2017-04-28 04:32] VITALS: BP 189/85; TEMP 97.6
[2017-04-28 05:42] LABS: ALT (SGPT) 10 U/L (8-55); AST (SGOT) 13 U/L (5-34); Alkaline Phosphatase 57 U/L (40-150); Anion Gap 12 mmol/L (10-20); BUN (Urea Nitrogen) 26 mg/dL (9.8-20.1); Bilirubin, Total 0.4 mg/dL (0.2-1.2); Calc. Creatinine Clearance 34 mL/min (70-130); Calcium 8.8 mg/dL (7.8-10.44); Carbon Dioxide 30 mmol/L (23-31); Chloride 102 mmol/L (98-107); Estimated GFR-MDRD 64; Globulin 2.8 g/dL (2.4-3.5); Glucose 138 mg/dL (83-110); Protein, Total 5.8 g/dL (6.0-8.3); Sodium 140 mmol/L (136-145)
[2017-04-28 06:11] LABS: #Basophils 0.1 thou/uL (0.0-0.2); #Eosinphils 0.1 thou/uL (0.0-0.7); #Lymphocytes 0.9 thou/uL (1.20-3.40); #Monocytes 0.4 thou/uL (0.11-0.59); #Neutrophils 3.3 thou/uL (1.40-6.50); %Basophils 1.4 % (0.0-1.0); %Eosinophils 1.6 % (0.0-10.0); %Lymphocytes 18.5 % (21.0-51.0); %Monocytes 9.1 % (0.0-10.0); %Neutrophils 69.5 % (42.0-75.0); Hemoglobin 11.5 g/dL (12.0-16.0); Mean Corpuscular HGB CONC 33.9 g/dL (32.0-36.0); Mean Corpuscular Hemoglobin 28.4 pg (27.0-31.0); Mean Corpuscular Volume 83.9 fl (81.0-99.0); Mean Platelet Volume 8.7 fL (7.4-10.4); Platelet Count 200 thou/uL (130-400); RBC Distribution Width 15.1 % (11.5-14.5); Red Blood Cell (RBC) Count 4.03 mill/uL (4.20-5.40); White Blood Cell (WBC) Count 4.7 thou/uL (4.8-10.8)
--- NOTE | 2017-04-28 08:23 | RAD ---
CHEST TWO VIEWS: Date: 04-28-17 Comparison: 04-27-17 FINDINGS: Again noted is a large left pleural effusion. The amount has not changed much since yesterday. There is slightly more infiltrate in the right lung base, however. A small amount of fluid is suggested on the right as well. The cardiac size is about the same. The upper lobe vessels show no congestion. IMPRESSION: 1. Sizable left pleural effusion, little changed since yesterday. 2. Slight increase in right basilar infiltrate since yesterday. POS: HOME
--- NOTE | 2017-04-28 12:08 | DIS ---
DATE OF ADMISSION 04/25/2017 DATE OF DISCHARGE: Discharge from inpatient status to swing status on 2017. ADMISSION DIAGNOSES: 1. Community-acquired pneumonia. 2. Bilateral pleural effusions. 3. History of adenocarcinoma of the lung. 4. Type 2 diabetes mellitus. 5. Peripheral vascular disease. 6. Hypertension. 7. Irritable bowel syndrome. 8. Gastroesophageal reflux disease. 9. Dyslipidemia. DISCHARGE DIAGNOSES: 1. Community-acquired pneumonia. 2. Bilateral pleural effusions. 3. History of adenocarcinoma of the lung. 4. Type 2 diabetes mellitus. 5. Peripheral vascular disease. 6. Hypertension. 7. Irritable bowel syndrome. 8. Gastroesophageal reflux disease. 9. Dyslipidemia. PROCEDURES: 04/27/2017 - Chest x-ray showed bilateral pleural fluid, left greater than right and left basilar infiltrate are stable compared to recent CT , chronic obstructive pulmonary disease. HOSPITAL COURSE: An 87-year-old female patient of Dr. Aaron'peggy was seen in the outpatient setting with complaints of cough and congestion for which she was prescribed doxycycline and Tessalon Perles. A short time thereafter she presented to [facility] Emergency Department with complaints of worsening upper respiratory symptoms including wheezing and some shortness of breath. A chest x-ray was performed showing left pleural effusion similar to 02/2017 study , perhaps minimally increased. This was followed by chest CT which showed bilateral pleural effusions, much greater on the left than the right with the effusion on the right, increased slightly over time, but not dramatically, minimal right lower lobe infiltrate, more substantial left lower lobe infiltrate which may be pneumonia or atelectasis of both, nodular area in the left lung apex and cannot tell if this is postoperative scarring from lobectomy versus recurrent tumor. PET scan was recommended. The patient notably had no leukocytosis or fever and was provided DuoNeb treatments, Solu-Medrol, and clonidine for elevated blood pressure and discharged to her home setting. She presented the next day with complaints of hyperglycemia which has been attributed to receiving Solu-Medrol in the emergency department. At that time, the patient was admitted for further treatment of her pneumonia and hyperglycemia. Labs have been trended and she has remained without leukocytosis and afebrile throughout her stay. She has been continued on her doxycycline with added IV Rocephin. Follow up chest x-ray as stated as above. Initial labs did show a slight elevation of her BNP at 467, however, this trended down to 288 with IV Lasix 20 mg. Most recent TTE done in October of last year showed a normal left ventricular ejection fraction at 60-65%, trace mitral regurgitation, moderately dilated left atrium and moderately elevated pulmonary artery pressure. She does have a history of adenocarcinoma of the lung, status post left thoracotomy with left upper lobectomy and mediastinal lymph node resection on 11/06/2016; to my knowledge the patient did not require adjuvant therapy. As per the CT reading it is recommended that she follow up with a PET scan as an outpatient. Due to the patient's persistent pleural effusion and most recent CT scan results of her chest, her allied health professional, Dr. Doty, was contacted and has agreed to see her in the outpatient setting today for further evaluation and treatment recommendations. She has remained off of supplemental oxygen throughout her stay. She has required increased attention to her blood pressure with p.r.n. labetalol and clonidine to help stabilize her blood pressure. Her glucose has also notably stabilized. DISPOSITION: The patient will discharge from inpatient acute status to [facility] status at this time. She will follow up with her allied health professional, Dr. Doty, this afternoon for further assessment and treatment options regarding her CT scan and pleural effusions. DISCHARGE MEDICATIONS: Acetaminophen 650 mg p.o. q.4 hours p.r.n., acidophilus 1 gram p.o. daily, albuterol nebs q.4 hours p.r.n., aspirin 81 mg p.o. daily, Tessalon Perles 100 mg p.o. t.i.d. p.r.n., Rocephin 1 gram IV daily , clonidine 0.1 mg p.o. b.i.d. p.r.n. systolic greater than 180, diastolic greater than 100, digoxin 0.125 mg p.o. Thursday, Thursday, Thursday, doxycycline 100 mg p.o. b.i.d., famotidine 20 mg p.o. daily, furosemide 20 mg IV daily, gabapentin 100 mg p.o. at bedtime, glipizide 5 mg p.o. daily, guaifenesin ER 1200 mg p.o. b.i.d. p.r.n., Humalog sliding scale, hydralazine 50 mg p.o. t.i.d. , DuoNeb q.6 hours, labetalol 20 mg IV p.r.n. systolic blood pressure greater than 180. Magnesium hydroxide 30 mL p.o. daily p.r.n., metoprolol tartrate 25 mg p.o. b.i.d., Zofran 4 mg p.o. q.6 hours p.r.n. MTDD
--- NOTE | 2017-04-30 07:50 | DIS ---
DATE OF ADMISSION: 04/25/2017 DATE OF DISCHARGE: 04/28/2017 ADMISSION DIAGNOSES: 1. Community-acquired pneumonia. 2. Bilateral pleural effusions, left greater than right, 3. History of adenocarcinoma of the lung. 4. Type 2 diabetes mellitus. 5. Peripheral vascular disease. 6. Hypertension. SECONDARY DIAGNOSES: Irritable bowel syndrome, gastroesophageal reflux disease , dyslipidemia. PROCEDURES: 1. 04/27/2017 - Chest x-ray showed bilateral pleural fluid, left greater than right and left basilar infiltrate are stable compared to recent CT, chronic obstructive pulmonary disease. 2. 04/28/2018 - Chest x-ray showed sizable left pleural effusion, little change since yesterday, slight increase in right basilar infiltrate since yesterday. 3. 04/24/2017 - Chest CT showed bilateral pleural effusions, much greater on the left than the right. Looking at prior chest x-rays the effusion on the right has increased slightly over time, but not dramatically. Minimal right lower lobe infiltrate, more substantial left lower lobe infiltrate which may be pneumonia, atelectasis of both, nodular area in the left lung apex, cannot tell if this is postoperative scarring from her lobectomy versus recurrent tumor. PET scan recommended. 4. 04/29/2017 - Chest x-ray status post left-sided thoracentesis. There is decreased left-sided pleural effusion, no evidence of post-procedure pneumothorax seen. HOSPITAL COURSE: An 87-year-old female who is followed by Dr. Aaron as her PCP and Dr. Doty as her escrow officer, presented to [facility] Emergency Department with worsening upper respiratory symptoms and dyspnea. She had been treated with outpatient p.o. doxycycline prior to arrival. However, her symptoms did not improve. On presentation, her imaging is as stated above and she notably had hyperglycemia after having received IV Solu-Medrol the day prior. She was subsequently admitted for concern for community-acquired pneumonia, bilateral pleural effusions and hyperglycemia. Of note, she does have a history of adenocarcinoma of the lung, status post left thoracotomy with a left upper lobectomy and mediastinal lymph node resection on 11/06/2016. This did not require adjuvant therapy thereafter. As noted above, it was recommended that she repeat a PET scan as an outpatient. The patient's pleural effusion did not substantially show improvement with the IV diuresis, thus her escrow officer, Dr. Doty, was contacted and subsequently evaluated the patient and performed a thoracentesis on 04/29/2017 with 700 mL drained from the left lung providing substantial improvement regarding the patient's symptoms. The plan will be to follow up the cytology and then with Dr. Doty in about a month thereafter. During her stay, she has remained afebrile with no leukocytosis and on room air. Upon returning from her thoracentesis the patient feels stable to go home for which Dr. Doty feels this is acceptable as well with outpatient followup as planned. DISPOSITION: The patient will discharge to her home setting and may follow up with Dr. Doty as scheduled and with her primary care provider, Dr. Aaron. DISCHARGE MEDICATIONS: Glipizide XL 5 mg p.o. daily, Linzess 145 mcg p.o. daily p.r.n., gabapentin 100 mg p.o. at bedtime, Lopressor 25 mg p.o. at bedtime , digoxin 0.125 mg p.o. daily, Januvia 100 mg p.o. daily, hydralazine 50 mg p.o. t.i.d., aspirin 81 mg p.o. daily. MTDD
== END 2017-04-28 05:45 | disposition swing bed (61) | DRG 637 ==
LOC: BURERS 10:18 → BURMED 12:24
PROVIDERS: ADMIT Family Medicine; ATTEND Family Medicine
DX: E09.65 Drug or chemical induced diabetes mellitus with hyperglycemia (principal); J18.9 Pneumonia, unspecified organism; J90 Pleural effusion, not elsewhere classified; I73.9 Peripheral vascular disease, unspecified; E78.5 Hyperlipidemia, unspecified; T38.0X5A Adverse effect of glucocorticoids and synthetic analogues, initial encounter; Z79.84 Long term (current) use of oral hypoglycemic drugs; Z85.118 Personal history of other malignant neoplasm of bronchus and lung; K58.9 Irritable bowel syndrome, unspecified; K21.9 Gastro-esophageal reflux disease without esophagitis; I10 Essential (primary) hypertension
CPT/HCPCS: 36415; 36416; 71046; 80048; 80053; 80162; 81003; 81015; 82553; 83880; 84484; 85025; 87086; 93005; 94640; 94760; 96361; 96374; 96375; A4216; G8978-GP-CJ; G8979-GP-CH; G8987-GO-CI; G8988-GO-CI; J0696; J1940; J7050; J7620

== ENCOUNTER 2017-04-28 03:12 | Inpatient (IN) | payer MEDICARE, BC ==
[2017-04-28 05:17] VITALS: BMI 16.7
[2017-04-28] MEDS ORDERED: Acetaminophen 325 MG TAB PO PRN (07:01)
[2017-04-28] MEDS ORDERED: Albuterol Sulfate 2.5 mg/3 ml Neb NEB PRN (07:02)
[2017-04-28] MEDS ORDERED: Benzonatate 100 MG CAP PO PRN (07:03)
[2017-04-28] MEDS ORDERED: cloNIDine 0.1 MG TAB PO PRN (07:03)
[2017-04-28] MEDS ORDERED: HumaLOG 300 UNITS/3 ML VIAL SC PRN (07:04)
[2017-04-28] MEDS ORDERED: Dextrose 5% in Water 1,000 ML IV PRN (07:04)
[2017-04-28] MEDS ORDERED: Dextrose 50% Abboject 50 ML SYRINGE IVP PRN (07:05)
[2017-04-28] MEDS ORDERED: Labetalol 100 MG/20 ML MDV SLOW IVP PRN (07:07)
[2017-04-28] MEDS ORDERED: Milk Of Magnesia 30 ML UDCUP PO PRN (07:07)
[2017-04-28] MEDS ORDERED: Ondansetron ODT 4 MG TAB PO PRN (07:07)
[2017-04-28] MEDS ORDERED: Ondansetron HCl/PF 4 MG/2 ML Vial IVP PRN (07:08)
[2017-04-28] MEDS ORDERED: Sterile Water 10 ML VIAL FS SCH (08:30)
[2017-04-28] MEDS: hydrALAZINE 25 MG TAB PO SCH ×3 (08:34→21:22)
[2017-04-28] MEDS: guaiFENesin ER 600 MG TAB PO SCH ×2 (08:35→21:19)
[2017-04-28] MEDS: Aspirin 81 mg Enteric Coated Tablet PO SCH (08:35)
[2017-04-28] MEDS: Doxycycline Hyclate 100 MG TAB PO SCH ×2 (08:35→21:19)
[2017-04-28] MEDS: Floranex Packet PO SCH (08:36)
[2017-04-28] MEDS: Metoprolol Tartrate 25 MG TAB PO SCH ×2 (08:36→21:19)
[2017-04-28] MEDS: Furosemide 20 MG/2 ML VIAL SLOW IVP SCH (08:41)
[2017-04-28] MEDS: Alogliptin 25 MG TAB PO SCH (08:41)
[2017-04-28] MEDS: HumaLOG 300 UNITS/3 ML VIAL SC PRN ×2 (08:42→17:56)
[2017-04-28] MEDS ORDERED: JANUVIA 100 MG PO SCH (09:00)
[2017-04-28] MEDS ORDERED: cefTRIAXone\\ROCEPHIN 1 GM in Sterile Water 10 ML IVPB SCH (11:00)
[2017-04-28] MEDS: cefTRIAXone\\ROCEPHIN 1 GM VIAL SLOW IVP SCH (11:20)
--- NOTE | 2017-04-28 12:08 | DIS ---
DATE OF ADMISSION 04/25/2017 DATE OF DISCHARGE: Discharge from inpatient status to swing status on 2017. ADMISSION DIAGNOSES: 1. Community-acquired pneumonia. 2. Bilateral pleural effusions. 3. History of adenocarcinoma of the lung. 4. Type 2 diabetes mellitus. 5. Peripheral vascular disease. 6. Hypertension. 7. Irritable bowel syndrome. 8. Gastroesophageal reflux disease. 9. Dyslipidemia. DISCHARGE DIAGNOSES: 1. Community-acquired pneumonia. 2. Bilateral pleural effusions. 3. History of adenocarcinoma of the lung. 4. Type 2 diabetes mellitus. 5. Peripheral vascular disease. 6. Hypertension. 7. Irritable bowel syndrome. 8. Gastroesophageal reflux disease. 9. Dyslipidemia. PROCEDURES: 04/27/2017 - Chest x-ray showed bilateral pleural fluid, left greater than right and left basilar infiltrate are stable compared to recent CT , chronic obstructive pulmonary disease. HOSPITAL COURSE: An 87-year-old female patient of Dr. Aaron'peggy was seen in the outpatient setting with complaints of cough and congestion for which she was prescribed doxycycline and Tessalon Perles. A short time thereafter she presented to [facility] Emergency Department with complaints of worsening upper respiratory symptoms including wheezing and some shortness of breath. A chest x-ray was performed showing left pleural effusion similar to 02/2017 study , perhaps minimally increased. This was followed by chest CT which showed bilateral pleural effusions, much greater on the left than the right with the effusion on the right, increased slightly over time, but not dramatically, minimal right lower lobe infiltrate, more substantial left lower lobe infiltrate which may be pneumonia or atelectasis of both, nodular area in the left lung apex and cannot tell if this is postoperative scarring from lobectomy versus recurrent tumor. PET scan was recommended. The patient notably had no leukocytosis or fever and was provided DuoNeb treatments, Solu-Medrol, and clonidine for elevated blood pressure and discharged to her home setting. She presented the next day with complaints of hyperglycemia which has been attributed to receiving Solu-Medrol in the emergency department. At that time, the patient was admitted for further treatment of her pneumonia and hyperglycemia. Labs have been trended and she has remained without leukocytosis and afebrile throughout her stay. She has been continued on her doxycycline with added IV Rocephin. Follow up chest x-ray as stated as above. Initial labs did show a slight elevation of her BNP at 467, however, this trended down to 288 with IV Lasix 20 mg. Most recent TTE done in October of last year showed a normal left ventricular ejection fraction at 60-65%, trace mitral regurgitation, moderately dilated left atrium and moderately elevated pulmonary artery pressure. She does have a history of adenocarcinoma of the lung, status post left thoracotomy with left upper lobectomy and mediastinal lymph node resection on 11/06/2016; to my knowledge the patient did not require adjuvant therapy. As per the CT reading it is recommended that she follow up with a PET scan as an outpatient. Due to the patient's persistent pleural effusion and most recent CT scan results of her chest, her cold meat cook, Dr. Doty, was contacted and has agreed to see her in the outpatient setting today for further evaluation and treatment recommendations. She has remained off of supplemental oxygen throughout her stay. She has required increased attention to her blood pressure with p.r.n. labetalol and clonidine to help stabilize her blood pressure. Her glucose has also notably stabilized. DISPOSITION: The patient will discharge from inpatient acute status to [facility] status at this time. She will follow up with her cold meat cook, Dr. Doty, this afternoon for further assessment and treatment options regarding her CT scan and pleural effusions. DISCHARGE MEDICATIONS: Acetaminophen 650 mg p.o. q.4 hours p.r.n., acidophilus 1 gram p.o. daily, albuterol nebs q.4 hours p.r.n., aspirin 81 mg p.o. daily, Tessalon Perles 100 mg p.o. t.i.d. p.r.n., Rocephin 1 gram IV daily , clonidine 0.1 mg p.o. b.i.d. p.r.n. systolic greater than 180, diastolic greater than 100, digoxin 0.125 mg p.o. Thursday, Thursday, Thursday, doxycycline 100 mg p.o. b.i.d., famotidine 20 mg p.o. daily, furosemide 20 mg IV daily, gabapentin 100 mg p.o. at bedtime, glipizide 5 mg p.o. daily, guaifenesin ER 1200 mg p.o. b.i.d. p.r.n., Humalog sliding scale, hydralazine 50 mg p.o. t.i.d. , DuoNeb q.6 hours, labetalol 20 mg IV p.r.n. systolic blood pressure greater than 180. Magnesium hydroxide 30 mL p.o. daily p.r.n., metoprolol tartrate 25 mg p.o. b.i.d., Zofran 4 mg p.o. q.6 hours p.r.n. MTDD
[2017-04-28] MEDS ORDERED: LINZESS 145 MCG PO PRN (16:02)
[2017-04-28] MEDS ORDERED: Gabapentin 100 MG CAP PO SCH (21:00)
[2017-04-28] MEDS ORDERED: Famotidine 20 MG TAB PO SCH (21:00)
[2017-04-29] MEDS ORDERED: Digoxin 0.125 MG TAB PO SCH (06:00)
[2017-04-29] MEDS ORDERED: hydrALAZINE 25 MG TAB PO SCH ×2 (06:00→15:00)
[2017-04-29] MEDS ORDERED: Metoprolol Tartrate 25 MG TAB PO SCH ×2 (06:00→21:00)
[2017-04-29 06:53] VITALS: BP 148/67; TEMP 97.7
[2017-04-29] MEDS ORDERED: LINZESS 145 MCG PO SCH (09:00)
[2017-04-29] MEDS: cefTRIAXone\\ROCEPHIN 1 GM VIAL SLOW IVP SCH (11:29)
[2017-04-29] MEDS: guaiFENesin ER 600 MG TAB PO SCH (11:30)
[2017-04-29] MEDS: Furosemide 20 MG/2 ML VIAL SLOW IVP SCH (11:31)
[2017-04-29] MEDS: Doxycycline Hyclate 100 MG TAB PO SCH (11:31)
[2017-04-29] MEDS: Aspirin 81 mg Enteric Coated Tablet PO SCH (11:32)
[2017-04-29] MEDS: Alogliptin 25 MG TAB PO SCH (11:32)
[2017-04-29] MEDS: Floranex Packet PO SCH (11:39)
[2017-05-01] MEDS ORDERED: Digoxin 0.125 MG TAB PO SCH (09:00)
== END 2017-04-29 13:29 | disposition home or self-care (01) | DRG 637 ==
LOC: BURMED 05:55
PROVIDERS: ADMIT Family Medicine; ATTEND Family Medicine
DX: E11.65 Type 2 diabetes mellitus with hyperglycemia (principal); J18.9 Pneumonia, unspecified organism; J90 Pleural effusion, not elsewhere classified; E11.51 Type 2 diabetes mellitus with diabetic peripheral angiopathy without gangrene; I10 Essential (primary) hypertension; K58.9 Irritable bowel syndrome, unspecified; K21.9 Gastro-esophageal reflux disease without esophagitis; E78.5 Hyperlipidemia, unspecified; Z88.7 Allergy status to serum and vaccine; Z88.1 Allergy status to other antibiotic agents; Z91.041 Radiographic dye allergy status; Z91.013 Allergy to seafood; Z79.84 Long term (current) use of oral hypoglycemic drugs; Z79.82 Long term (current) use of aspirin; T38.0X5A Adverse effect of glucocorticoids and synthetic analogues, initial encounter
CPT/HCPCS: 36416; A4216; G8978-GP-CJ; G8979-GP-CI; J0696; J1940; J7620

== ENCOUNTER 2019-07-24 08:11 | Emergency (ER) | payer MEDICARE, BC ==
[2019-07-24] MEDS ORDERED: Ondansetron PF 4 MG/2 ML Vial ONE (08:29)
[2019-07-24] MEDS ORDERED: Famotidine In NaCl 20 mg/50 ml Premix Bag ONE (08:29)
[2019-07-24 08:48] LABS: #Basophils 0.1 thou/uL (0.0-0.2); #Lymphocytes 0.9 thou/uL (1.20-3.40); #Monocytes 0.5 thou/uL (0.11-0.59); #Neutrophils 10.2 thou/uL (1.40-6.50); %Basophils 0.5 % (0.0-1.0); %Lymphocytes 7.3 % (21.0-51.0); %Monocytes 4.5 % (0.0-10.0); %Neutrophils 87.6 % (42.0-75.0); Hemoglobin 12.5 g/dL (12.0-16.0); Mean Corpuscular HGB CONC 30.4 g/dL (32.0-36.0); Mean Corpuscular Hemoglobin 27.5 pg (27.0-31.0); Mean Corpuscular Volume 90.5 fL (78.0-98.0); Mean Platelet Volume 7.6 fL (7.4-10.4); Platelet Count 213 thou/uL (130-400); RBC Distribution Width 14.7 % (11.5-14.5); Red Blood Cell (RBC) Count 4.56 mill/uL (4.20-5.40); White Blood Cell (WBC) Count 11.6 thou/uL (4.8-10.8)
[2019-07-24 08:53] LABS: ALT (SGPT) 14 U/L (8-55); AST (SGOT) 19 U/L (5-34); Albumin 4.2 g/dL (3.4-4.8); Alkaline Phosphatase 71 U/L (40-110); Anion Gap 19 mmol/L (10-20); BUN (Urea Nitrogen) 24 mg/dL (9.8-20.1); Bilirubin, Total 0.8 mg/dL (0.2-1.2); Calc. Creatinine Clearance 0 mL/min (70-130); Calcium 9.6 mg/dL (7.8-10.44); Carbon Dioxide 25 mmol/L (23-31); Chloride 99 mmol/L (98-107); Estimated GFR-MDRD 41; Globulin 3.1 g/dL (2.4-3.5); Glucose 180 mg/dL (83-110); Lipase 21 U/L (8-78); Potassium 3.6 mmol/L (3.5-5.1); Protein, Total 7.3 g/dL (6.0-8.3); Sodium 139 mmol/L (136-145)
[2019-07-24 09:57] LABS: Bilirubin Negative (Negative); Blood, Urine Negative (Negative); Clarity Clear (Clear); Glucose, Urine (Dipstick) Negative (Negative); Leukocyte Trace (Negative); Nitrite Negative (Negative); Protein, Urine (Dipstick) 100 mg/dL (Neg-Trace); Urobilinogen 0.2 mg/dL (Less than 2)
[2019-07-24 10:02] LABS: RBC/HPF None Seen HPF (0-3)
[2019-07-24 10:03] LABS: Bacteria/HPF 1+ HPF (None Seen); Mucous/LPF 1+ LPF (<2+); Squamous Epithelial 0-3 HPF (0-3)
--- NOTE | 2019-07-24 13:21 | CT ---
CT ABDOMEN AND PELVIS WITHOUT IV CONTRAST: Indications: Abdominal pain with nausea and vomiting. History of colon cancer. Comparison: CT abdomen and pelvis, 10-06-18 FINDINGS: Images through the lung bases reveal loculated effusion of the left lung base which appears unchanged from the prior exam of 10-06-18. There is a fixed sliding diaphragmatic hernia which is more prominent today with portions of the stom ach above the diaphragm. Liver, spleen, and pancreas unremarkable. Post cholecystectomy change noted. Kidneys unremarkable. No hydronephrosis. Urinary bladder mildly distended but unremarkable. No eviden ce of urinary tract calculus. Small bowel loops normal caliber. Patient is status post right colectomy. Prominent stool in the left colon. Aorta is calcified but normal caliber. No free fluid. No soft tissue mass apparent. Images through th e pelvis show evidence of hysterectomy. The osseous structures show modeled sclerotic densities invol ving the vertebral bodies which is a stable finding. No compression deformity or focal lytic or blast ic process. IMPRESSION: 1. Loculated effusion in the left lung base appears stable from exam of 10-06-18. 2. Increasing size in the fixed diaphragmatic hernia since prior exam which may correlate to the hist ory of abdominal pain and nausea. 3. No acute intraabdominal process. Prominent stool in the colon may indicate constipation. POS: [facility]
== END 2019-07-24 10:14 | disposition home or self-care (01) ==
LOC: BURERS 08:11
DX: R11.2 Nausea with vomiting, unspecified (principal); R10.13 Epigastric pain; E11.9 Type 2 diabetes mellitus without complications; E78.5 Hyperlipidemia, unspecified; I10 Essential (primary) hypertension; Z79.899 Other long term (current) drug therapy; Z79.82 Long term (current) use of aspirin; Z79.84 Long term (current) use of oral hypoglycemic drugs; Z85.038 Personal history of other malignant neoplasm of large intestine
CPT/HCPCS: 74176; 80053; 81003; 81015; 83690; 84484; 85025; J2405

== ENCOUNTER 2019-07-24 21:51 | Emergency (ER) | payer MEDICARE, BC ==
[2019-07-24] MEDS ORDERED: Metoclopramide HCl 10 MG/2 ML VIAL ONE (22:12)
[2019-07-24] MEDS ORDERED: Mag-Al Plus 1200 MG/1200 MG/120 MG/30 ML UDCUP ONE (22:12)
[2019-07-24] MEDS ORDERED: diphenhydrAMINE 12.5 MG/5 ML UDCUP ONE (22:12)
[2019-07-24] MEDS ORDERED: Lidocaine Viscous Sol 2% 15 ml UD Cup ONE (22:12)
[2019-07-24] MEDS ORDERED: diphenhydrAMINE 50 MG/ML VIAL ONE (22:13)
[2019-07-24] MEDS ORDERED: Famotidine In NaCl 20 mg/50 ml Premix Bag ONE (22:14)
[2019-07-24 23:01] LABS: #Lymphocytes 0.7 thou/uL (1.20-3.40); #Monocytes 0.4 thou/uL (0.11-0.59); #Neutrophils 7.7 thou/uL (1.40-6.50); %Basophils 0.4 % (0.0-1.0); %Lymphocytes 7.9 % (21.0-51.0); %Monocytes 4.4 % (0.0-10.0); %Neutrophils 87.3 % (42.0-75.0); Hemoglobin 11.5 g/dL (12.0-16.0); Mean Corpuscular HGB CONC 29.7 g/dL (32.0-36.0); Mean Corpuscular Hemoglobin 27.1 pg (27.0-31.0); Mean Corpuscular Volume 91.2 fL (78.0-98.0); Mean Platelet Volume 8.3 fL (7.4-10.4); Platelet Count 188 thou/uL (130-400); RBC Distribution Width 14.7 % (11.5-14.5); Red Blood Cell (RBC) Count 4.23 mill/uL (4.20-5.40); White Blood Cell (WBC) Count 8.8 thou/uL (4.8-10.8)
[2019-07-24 23:21] LABS: ALT (SGPT) 13 U/L (8-55); AST (SGOT) 17 U/L (5-34); Albumin 4.1 g/dL (3.4-4.8); Alkaline Phosphatase 66 U/L (40-110); Anion Gap 21 mmol/L (10-20); BUN (Urea Nitrogen) 29 mg/dL (9.8-20.1); Bilirubin, Total 0.8 mg/dL (0.2-1.2); Calc. Creatinine Clearance 0 mL/min (70-130); Calcium 9.3 mg/dL (7.8-10.44); Carbon Dioxide 21 mmol/L (23-31); Chloride 101 mmol/L (98-107); Estimated GFR-MDRD 43; Globulin 2.9 g/dL (2.4-3.5); Glucose 205 mg/dL (83-110); Lipase 16 U/L (8-78); Potassium 3.6 mmol/L (3.5-5.1); Sodium 139 mmol/L (136-145)
[2019-07-25 00:28] LABS: Anion Gap 18 mmol/L (10-20); BUN (Urea Nitrogen) 28 mg/dL (9.8-20.1); Calc. Creatinine Clearance 0 mL/min (70-130); Calcium 8.7 mg/dL (7.8-10.44); Carbon Dioxide 21 mmol/L (23-31); Chloride 104 mmol/L (98-107); Estimated GFR-MDRD 49; Glucose 227 mg/dL (83-110); Potassium 3.5 mmol/L (3.5-5.1); Sodium 139 mmol/L (136-145)
== END 2019-07-25 00:45 | disposition home or self-care (01) ==
LOC: BURERS 21:51
DX: K21.9 Gastro-esophageal reflux disease without esophagitis (principal); K29.70 Gastritis, unspecified, without bleeding; R11.2 Nausea with vomiting, unspecified; E11.9 Type 2 diabetes mellitus without complications; E78.5 Hyperlipidemia, unspecified; I10 Essential (primary) hypertension; Z79.899 Other long term (current) drug therapy; Z79.82 Long term (current) use of aspirin; Z79.84 Long term (current) use of oral hypoglycemic drugs
CPT/HCPCS: 74176; 80048; 80053; 81003; 81015; 83690; 84484; 85025; 93005; 96361; 96365; 96375; J1200; J2405; J2765; Q0163

== ENCOUNTER 2022-03-02 07:52 | Emergency (ER) | payer MEDICARE, BC ==
[2022-03-02] MEDS ORDERED: Acetaminophen 325 MG TAB ONE (08:54)
[2022-03-02] MEDS ORDERED: hydrALAZINE 25 MG TAB ONE (09:09)
== END 2022-03-02 10:46 | disposition home or self-care (01) ==
LOC: BURERS 07:52
DX: S00.03XA Contusion of scalp, initial encounter (principal); E11.9 Type 2 diabetes mellitus without complications; E78.5 Hyperlipidemia, unspecified; I10 Essential (primary) hypertension; Z79.899 Other long term (current) drug therapy; W06.XXXA Fall from bed, initial encounter
CPT/HCPCS: 70450; 71250; 72125; 74176